=== PATIENT | male | born 1970 | race Hispanic/Latino ===

== ENCOUNTER 2021-08-27 22:51 | Emergency (ER) | payer OTHER ==
[~2021-08-27] VITALS: Ht 167.6 cm; Wt 117.9 kg
[2021-08-27 23:19] LABS: BASOPHILS % (AUTO) 0.5 % (0.0-5.0); EOSINOPHILS % (AUTO) 0.8 % (0.0-8.0); HEMATOCRIT 45.9 % (42-54); LYMPHOCYTES % (AUTO) 11.3 % (21.0-51.0); MEAN CORPUSCULAR HEMOGLOBIN 30.6 pg (27.0-33.0); MEAN CORPUSCULAR HGB CONC 35.3 g/dL (32.0-36.0); MEAN CORPUSCULAR VOLUME 86.8 fL (79-99); NEUTROPHILS % (AUTO) 78.9 % (40.0-77.0); PLATELET COUNT (AUTO) 305 K/uL (130-400); RED BLOOD CELL COUNT(AUTO) 5.29 MIL/uL (4.50-6.20); RED CELL DISTRIBUTION WIDTH 12.9 % (11.0-15.5)
[2021-08-27] MEDS ORDERED: BISACODYL 10 MG SUPP.RECT RC ONE (23:30)
[2021-08-27 23:37] LABS: CREATININE 1.3 mg/dL (0.5-1.5); POTASSIUM 3.6 mmol/L (3.5-5.1)
[2021-08-27 23:42] LABS: ALBUMIN 4.2 g/dL (3.5-5.0); BILIRUBIN,TOTAL 0.8 mg/dL (0.2-1.0); TOTAL PROTEIN, SERUM 8.1 g/dL (6.0-8.3)
[2021-08-27 23:43] LABS: APPEARANCE,URINE Clear (CLEAR); BILIRUBIN,URINE Negative (NEGATIVE); COLOR,URINE Yellow (YELLOW); GLUCOSE, URINE (UA) Negative (NEGATIVE); KETONES,URINE Negative (NEGATIVE); LEUKOCYTE ESTERASE ,URINE Negative (NEGATIVE); NITRATE,URINE Negative (NEGATIVE); OCCULT BLOOD,URINE Negative (NEGATIVE); PH,URINE 6.5 (5.0-8.0); PROTEIN,URINE Negative (NEGATIVE); UROBILINOGEN,URINE 0.2 mg/dL (0.2-1.0)
[2021-08-28] MEDS ORDERED: KETOROLAC 60 MG VIAL (30MG/ML) ONE (00:17)
[2021-08-28] MEDS ORDERED: KETOROLAC 60 MG VIAL (30MG/ML) IM ONE (00:30)
[2021-08-28] MEDS ORDERED: DICY20TA2 PO (01:25)
[2021-08-28] MEDS ORDERED: IBUP-2070 PO (01:25)
[2021-08-28 02:34] VITALS: BP 137/70
== END 2021-08-28 02:46 | disposition home or self-care (01) ==
LOC: EDH 22:51
DX: K80.50 Calculus of bile duct without cholangitis or cholecystitis without obstruction (principal); K59.00 Constipation, unspecified; I10 Essential (primary) hypertension
CPT/HCPCS: 36415; 76705; 80053; 81003; 82550; 83690; 84484; 85025; 93005; 96372; 99285; J1885